=== PATIENT | male | born 1955 | race Two or more races ===

== ENCOUNTER 2020-01-29 13:38 | Inpatient (IN) | payer MEDICAID, OTHER ==
[~2020-01-29] VITALS: Ht 170.2 cm; Wt 96.1 kg
[2020-01-29 15:33] LABS: Urine Bacteria FEW /hpf (None Seen); Urine Blood 3+ /uL (Negative); Urine WBC 565 /hpf (0 - 3)
[2020-01-29 15:43] LABS: Urine Specific Gravity 1.022 (1.001-1.035)
[2020-01-29 16:03] LABS: Hematocrit 38.1 % (41.0-53.0); Hemoglobin 12.7 g/dL (13.5-17.5); Mean Corpuscular Hemoglobin 29.8 pg (28.0-32.0); Mean Corpuscular Hgb Conc. 33.3 g/dL (32.0-36.0); Mean Corpuscular Volume 89.6 fL (80.0-100.0); Platelet Count (auto) 376 10^3/uL (140-450); Red Blood Cells 4.25 10^6/uL (4.5-5.90); Red Cell Distribution Width 13.3 % (11.8-14.3); White Blood Cell 26.9 10^3/uL (4.4-10.8)
[2020-01-29 16:10] LABS: Basophils % (manual) 0 (0.0-2.0); Blast Cells 0; Eosinophils % (manual) 0 (0-7); Metamyelocytes % 0; Myelocytes % 0; Promyelocytes % 0; Reactive Lymphocytes 0
[2020-01-29] MEDS ORDERED: LIDOCAINE 2% JELLY 11ml (GLYDO) ONE (16:14)
[2020-01-29] MEDS ORDERED: cefTRIAXone 1GM/50ML D5W 50 ML IV ONE (16:15)
[2020-01-29 16:20] LABS: Albumin 3.4 g/dL (3.4-5.0); BUN/Creatinine Ratio 11.4; Calcium 8.3 mg/dL (8.5-10.1); Potassium 4.5 mmol/L (3.5-5.1)
[2020-01-29 16:23] LABS: Bilirubin, Total 0.4 mg/dL (0.2-1.0); Total Protein 7.4 g/dL (6.4-8.2)
[2020-01-29] MEDS ORDERED: LIDOCAINE 2% JELLY 11ml (GLYDO) UR ONE (16:45)
[2020-01-29 16:52] LABS: Band Neutrophils % (manual) 3; Lymphocytes % (manual) 11 (10.0-50.0); Monocytes % (manual) 5 (0-12)
[2020-01-29] MEDS ORDERED: ONDANSETRON HCL 4 MG/2 ML VIAL IV ONE (17:00)
[2020-01-29] MEDS ORDERED: MORPHINE SULFATE 4 MG/ML SYR/VIAL IV ONE (17:00)
[2020-01-29] MEDS ORDERED: MORPHINE SULF INJ 2 MG/ML SYRINGE 1ML IV PRN (17:45)
[2020-01-29] MEDS ORDERED: NITROGLYCERIN 0.4 MG SL TAB SL PRN (17:45)
[2020-01-29] MEDS ORDERED: ONDANSETRON HCL 4 MG/2 ML VIAL IV PRN (17:45)
[2020-01-29] MEDS ORDERED: ACETAMINOPHEN 500 MG TAB PO PRN (17:45)
[2020-01-29] MEDS ORDERED: DEXTROSE (50%) 50ML SYRG IV PRN (17:45)
[2020-01-29] MEDS: SODIUM CHLORIDE 0.9% 1,000 ML IV SCH ×2 (17:51→23:09)
[2020-01-29] MEDS: TAMSULOSIN HYDROCHLORIDE 0.4 MG CAP PO SCH (18:21)
[2020-01-29] MEDS: InsuLIN REG 1unit/0.01ml Soln (100units/ml) SC SCH (21:58)
[2020-01-29] MEDS: ACCU-CHEK COMFORT CURVE STRIP VI SCH (22:02)
[2020-01-30] MEDS: MORPHINE SULF INJ 2 MG/ML SYRINGE 1ML IV PRN ×3 (00:06→21:49)
[2020-01-30] MEDS: InsuLIN REG 1unit/0.01ml Soln (100units/ml) SC SCH ×4 (07:00→21:53)
[2020-01-30] MEDS: ACCU-CHEK COMFORT CURVE STRIP VI SCH ×4 (07:00→21:49)
[2020-01-30 07:16] LABS: Basophils # (auto) 0 10 ^3/uL (0-0.2); Basophils % (auto) 0.2 % (0.0-2.0); Eosinophils # (auto) 0.1 10 ^3/uL (0-0.8); Eosinophils % (auto) 0.4 % (0.0-7.0); Hematocrit 36.8 % (41.0-53.0); Lymphocytes # (auto) 1.9 10 ^3/uL (0.4-5.4); Lymphocytes % (auto) 7.4 % (10.0-50.0); Mean Corpuscular Hemoglobin 29.5 pg (28.0-32.0); Mean Corpuscular Hgb Conc. 32.6 g/dL (32.0-36.0); Mean Corpuscular Volume 90.7 fL (80.0-100.0); Monocytes # (auto) 1.4 10 ^3/uL (0-1.3); Monocytes % (auto) 5.5 % (0.0-12.0); Neutrophils # (auto) 22.7 10 ^3/uL (1.6-8.6); Neutrophils % (auto) 86.5 % (37.0-80.0); Platelet Count (auto) 315 10^3/uL (140-450); Red Blood Cells 4.06 10^6/uL (4.5-5.90); Red Cell Distribution Width 13.3 % (11.8-14.3); White Blood Cell 26.2 10^3/uL (4.4-10.8)
[2020-01-30 07:44] LABS: BUN/Creatinine Ratio 9.3; Calcium 7.9 mg/dL (8.5-10.1)
[2020-01-30 08:46] LABS: INR 1.11 (0.9-1.15); Partial Thromboplastin Time 27.9 sec (23.64-32.05)
[2020-01-30] MEDS: cefTRIAXone 1GM/50ML D5W 50 ML IV SCH (09:13)
[2020-01-30] MEDS: SODIUM CHLORIDE 0.9% 1,000 ML IV SCH ×2 (13:56→23:55)
[2020-01-30] MEDS ORDERED: MIDAZOLAM HCL 1MG/1ML-2 ML VIAL ONE (15:01)
[2020-01-30] MEDS ORDERED: fentaNYL CITRATE 100 MCG/2 ML VL ONE (15:01)
[2020-01-30] MEDS ORDERED: MEPERIDINE HCL (50 MG/ML) 1 ML VIAL ONE (15:01)
[2020-01-30] MEDS ORDERED: SUCCINYLCHOLINE CHLORIDE 20 MG/ML 10ML VIAL IV ONE (15:02)
[2020-01-30] MEDS ORDERED: DexAMETHasone SOD PHOS 10MG/1ML VIAL INJ ONE (15:37)
[2020-01-30] MEDS ORDERED: PROPOFOL 10 MG/ML 20 ML IV ONE (15:37)
[2020-01-30] MEDS ORDERED: ONDANSETRON HCL 4 MG/2 ML VIAL IV PRN (15:45)
[2020-01-30] MEDS ORDERED: ePHEDrine SULFATE 50 MG/ML AMP IV PRN (15:45)
[2020-01-30] MEDS ORDERED: LABETALOL HCL 5 MG/ML 4ML SYRINGE IV PRN (15:45)
[2020-01-30] MEDS ORDERED: ACCU-CHEK COMFORT CURVE STRIP VI ONE (15:45)
[2020-01-30] MEDS ORDERED: MIDAZOLAM HCL 1MG/1ML-2 ML VIAL IV PRN (15:45)
[2020-01-30] MEDS ORDERED: HYDROmorphone HCL 2 MG/ML VL IV PRN (15:45)
[2020-01-30] MEDS ORDERED: MORPHINE SULFATE 4 MG/ML SYR/VIAL IV PRN (15:45)
--- NOTE | 2020-01-30 17:11 | NUR ---
Telemetry admit from recovery FELICIA DELANEY admitted to Telemetry unit after SBAR received. Patient oriented to Vicki Dorantes, RN primary RN, unit, room, bed, and unit policies regarding patient care and visiting hours. Patient now on continuous telemetry monitoring, tele box # 29 and telemetry reading on arrival to unit is sinus rhythm. Patient placed on bedside oxygen, weighed by bedscale and encouraged to call if they need something. All questions and concerns addressed, patient verbalized understanding. Noted CBI in place and catheter is hung below bladder draining [place] red fluid with minimal clots present in bag. Bed is set in lowest locked position with side rails up x 2 for safety and call light is within reach. No distress/SOB noted, breaths are even and unlabored, will continue to monitor.
[2020-01-30 17:20] VITALS: BP 148/79
[2020-01-30] MEDS: TAMSULOSIN HYDROCHLORIDE 0.4 MG CAP PO SCH (17:22)
--- NOTE | 2020-01-30 19:25 | NUR ---
Opening Shift Note Received report from Vicki CALERO. Assumed care of patient, awake and alert. No S/S of distress/SOB or pain. Patient s/p Cystoscopy with CBI draining light to dark red output. Instructed on POC and to call for assist PRN, will continue to monitor for changes Q1hr and PRN.
[2020-01-30 22:00] VITALS: BP 134/87
[2020-01-31 05:58] VITALS: BP 123/94
--- NOTE | 2020-01-31 06:00 | NUR ---
Given 24,000ml of CBI fluid, drained 27,075ml of bloody to pink tinged output, 3,075ml is urine output. Patient tolerated well.
[2020-01-31 06:42] LABS: Basophils # (auto) 0.1 10 ^3/uL (0-0.2); Basophils % (auto) 0.2 % (0.0-2.0); Eosinophils # (auto) 0 10 ^3/uL (0-0.8); Hematocrit 36.5 % (41.0-53.0); Hemoglobin 12.2 g/dL (13.5-17.5); Lymphocytes # (auto) 1.5 10 ^3/uL (0.4-5.4); Mean Corpuscular Hemoglobin 29.9 pg (28.0-32.0); Mean Corpuscular Hgb Conc. 33.4 g/dL (32.0-36.0); Mean Corpuscular Volume 89.6 fL (80.0-100.0); Monocytes # (auto) 0.8 10 ^3/uL (0-1.3); Monocytes % (auto) 2.6 % (0.0-12.0); Neutrophils # (auto) 27.7 10 ^3/uL (1.6-8.6); Neutrophils % (auto) 92.2 % (37.0-80.0); Nucleated Red Blood Cells % 0.1 %; Platelet Count (auto) 356 10^3/uL (140-450); Red Blood Cells 4.08 10^6/uL (4.5-5.90); Red Cell Distribution Width 13.3 % (11.8-14.3)
[2020-01-31] MEDS: ACCU-CHEK COMFORT CURVE STRIP VI SCH ×4 (06:51→21:52)
[2020-01-31] MEDS: InsuLIN REG 1unit/0.01ml Soln (100units/ml) SC SCH ×5 (06:52→21:58)
[2020-01-31 07:09] LABS: Potassium 4.3 mmol/L (3.5-5.1)
--- NOTE | 2020-01-31 07:11 | NUR ---
Care endorsed to Anu CALERO.
[2020-01-31 07:16] LABS: Albumin 2.8 g/dL (3.4-5.0); BUN/Creatinine Ratio 13.3; Bilirubin, Total 0.4 mg/dL (0.2-1.0); Calcium 8.1 mg/dL (8.5-10.1); Magnesium 2.7 mg/dL (1.6-2.6); Total Protein 6.8 g/dL (6.4-8.2)
--- NOTE | 2020-01-31 08:00 | NUR ---
Opening Shift Note Assumed care of patient, awake, alert and oriented X4. No S/S of distress/SOB or pain. Tele# 29, sinus rhythm @ 67 bpm. IV to right hand, 20 gauge, patent and infusing 0.9% NS @ 100 ml/hr. Urethral Mcdonnell 3 way catheter draining pink drainage to gravity via CBI, no clots noted. Bilateral SCD's in place, IS at bedside. Instructed on POC and to call for assist PRN, verbalized understanding. Bed locked, in lowest position, call light within reach, will continue to monitor for changes Q1hr and PRN.
[2020-01-31 09:00] VITALS: BP 127/70
[2020-01-31] MEDS: cefTRIAXone 1GM/50ML D5W 50 ML IV SCH (09:00)
[2020-01-31] MEDS: SODIUM CHLORIDE 0.9% 1,000 ML IV SCH ×2 (10:56→21:52)
[2020-01-31] MEDS: PIPERACILLIN-TAZO 4.5GM 100 ML IV ONE ×2 (10:57→11:41)
[2020-01-31] MEDS: PIPERACILLIN-TAZOB 3.375GM 100 ML IV SCH ×2 (11:49→18:14)
--- NOTE | 2020-01-31 11:50 | NUR ---
ROUNDS Dr Lopez at bedside for rounds, new orders received and followed through. Patient updated on plan of care, verbalized understanding, translation provided by ABDIAS Latham.
[2020-01-31 13:00] VITALS: BP 128/69
--- NOTE | 2020-01-31 13:15 | NUR ---
UROLOGY Polly Lima at bedside for Urology follow up, new orders received and followed through. Patient updated on plan of care, verbalized understanding.
--- NOTE | 2020-01-31 14:18 | NUR ---
I faxed higher level of care order/clinical information to [facility], [facility] and [facility].
--- NOTE | 2020-01-31 14:23 | NUR ---
I called [facility] Transfer Center [phone] and spoke with Anahi regarding the need to transfer this patient. I provided her with contact information for Dr. Lopez and the nurse's station. Per Anahi they have no beds available at this time.
--- NOTE | 2020-01-31 15:10 | NUR ---
I received a call from Savanna at [facility] letting me know that they can't accept this patient because he has presumptive medi-malcolm only, and because he does not have a definite cancer diagnosis.
[2020-01-31 17:00] VITALS: BP 130/69
[2020-01-31] MEDS: TAMSULOSIN HYDROCHLORIDE 0.4 MG CAP PO SCH (18:14)
--- NOTE | 2020-01-31 18:30 | NUR ---
CBI Total In 27,000 ml given Total out 26,250 ml out Total urine output 750 ml/12 hrs.
--- NOTE | 2020-01-31 19:24 | NUR ---
Care endorsed to ABDIAS Dangelo, night nurse.
[2020-01-31] MEDS: MORPHINE SULF INJ 2 MG/ML SYRINGE 1ML IV PRN (21:40)
[2020-01-31 22:00] VITALS: BP 103/56
[2020-02-01] MEDS: PIPERACILLIN-TAZOB 3.375GM 100 ML IV SCH ×4 (00:29→17:39)
[2020-02-01] MEDS: MORPHINE SULF INJ 2 MG/ML SYRINGE 1ML IV PRN ×3 (03:39→14:36)
[2020-02-01 05:00] VITALS: BP 121/70
[2020-02-01] MEDS: ACCU-CHEK COMFORT CURVE STRIP VI SCH ×4 (05:40→22:00)
[2020-02-01] MEDS: SODIUM CHLORIDE 0.9% 1,000 ML IV SCH ×2 (05:41→17:38)
[2020-02-01] MEDS: InsuLIN REG 1unit/0.01ml Soln (100units/ml) SC SCH ×4 (05:47→22:00)
[2020-02-01 06:44] LABS: Hematocrit 37.5 % (41.0-53.0); Hemoglobin 12.4 g/dL (13.5-17.5); Mean Corpuscular Hemoglobin 29.8 pg (28.0-32.0); Mean Corpuscular Hgb Conc. 33.1 g/dL (32.0-36.0); Mean Corpuscular Volume 89.9 fL (80.0-100.0); Platelet Count (auto) 392 10^3/uL (140-450); Red Blood Cells 4.17 10^6/uL (4.5-5.90); Red Cell Distribution Width 13.8 % (11.8-14.3); White Blood Cell 27.1 10^3/uL (4.4-10.8)
[2020-02-01 06:58] LABS: Band Neutrophils % (manual) 0; Basophils % (manual) 0 (0.0-2.0); Blast Cells 0; Metamyelocytes % 0; Myelocytes % 0; Promyelocytes % 0; Reactive Lymphocytes 0
[2020-02-01 07:02] LABS: Albumin 2.8 g/dL (3.4-5.0); Calcium 8.3 mg/dL (8.5-10.1); Magnesium 2.7 mg/dL (1.6-2.6); Potassium 4.7 mmol/L (3.5-5.1)
[2020-02-01 07:05] LABS: BUN/Creatinine Ratio 11.8; Bilirubin, Total 0.4 mg/dL (0.2-1.0); Total Protein 6.8 g/dL (6.4-8.2)
[2020-02-01 08:38] LABS: Eosinophils % (manual) 2 (0-7); Lymphocytes % (manual) 22 (10.0-50.0); Monocytes % (manual) 2 (0-12)
[2020-02-01 09:00] VITALS: BP 120/65
--- NOTE | 2020-02-01 09:09 | NUR ---
I called [facility] [phone] and spoke with Shayla, she said no beds available at this time.
--- NOTE | 2020-02-01 11:49 | NUR ---
I called [facility] [place] [phone] and spoke with Nika, she transferred me to the automated transfer request line-I was cut off when trying to provided clinical information. I called [facility] again and was unable to leave a message or speak with a live person-will try again.
[2020-02-01 13:00] VITALS: BP 137/70
--- NOTE | 2020-02-01 16:13 | NUR ---
PT URINE LIGHT YELLOW, NO PINK TRACES, NO BLOOD OR CLOTS NOTED. CBI CLAMPED. 3000 MLS NS USED FOR CBI, APPROX 5100 DRAINED FROM STRATTON THROUGHOUT THE DAY. WILL CONTINUE TO MONITOR.
[2020-02-01 17:00] VITALS: BP 142/78
[2020-02-01] MEDS: TAMSULOSIN HYDROCHLORIDE 0.4 MG CAP PO SCH (17:40)
[2020-02-01 17:54] VITALS: BP 142/78
--- NOTE | 2020-02-01 18:08 | NUR ---
PT REPORTS HE IS VERY UNCOMFORTABLE AND IS UNABLE TO HAVE A BM. HE REPORTS ABDOMINAL PAIN 5/10. CALLED PBX AND PAGED HOSPITALIST FOR MED, AWAITING CALL BACK.
[2020-02-01] MEDS ORDERED: DOCUSATE SOD 100 MG CAP PO ONE (18:45)
[2020-02-01] MEDS ORDERED: LACTULOSE 20Gm/30ML SOLN PO ONE (18:45)
--- NOTE | 2020-02-01 18:45 | NUR ---
DR LEWIS CALLED BACK. NOTIFIED MD OF PT CONSTIPATION, NEW ORDERS FOR LACTULOSE AND COLACE.
[2020-02-01] MEDS: DOCUSATE SOD 100 MG CAP PO SCH (21:24)
[2020-02-01 22:00] VITALS: BP 139/78
[2020-02-02] MEDS ORDERED: LACTULOSE 20Gm/30ML SOLN PO PRN
[2020-02-02] MEDS: PIPERACILLIN-TAZOB 3.375GM 100 ML IV SCH ×2 (01:16→04:59)
[2020-02-02] MEDS: MORPHINE SULF INJ 2 MG/ML SYRINGE 1ML IV PRN (03:56)
[2020-02-02] MEDS: SODIUM CHLORIDE 0.9% 1,000 ML IV SCH ×2 (04:59→12:43)
[2020-02-02 05:00] VITALS: BP 137/79
[2020-02-02] MEDS: ACCU-CHEK COMFORT CURVE STRIP VI SCH ×4 (05:48→21:52)
[2020-02-02] MEDS: InsuLIN REG 1unit/0.01ml Soln (100units/ml) SC SCH ×4 (05:55→22:00)
[2020-02-02 06:13] LABS: Basophils # (auto) 0 10 ^3/uL (0-0.2); Basophils % (auto) 0.2 % (0.0-2.0); Eosinophils # (auto) 0.3 10 ^3/uL (0-0.8); Eosinophils % (auto) 1.3 % (0.0-7.0); Hematocrit 37.9 % (41.0-53.0); Hemoglobin 12.6 g/dL (13.5-17.5); Lymphocytes # (auto) 2.8 10 ^3/uL (0.4-5.4); Lymphocytes % (auto) 11.1 % (10.0-50.0); Mean Corpuscular Hemoglobin 29.9 pg (28.0-32.0); Mean Corpuscular Hgb Conc. 33.3 g/dL (32.0-36.0); Mean Corpuscular Volume 89.7 fL (80.0-100.0); Monocytes # (auto) 1.6 10 ^3/uL (0-1.3); Monocytes % (auto) 6.5 % (0.0-12.0); Neutrophils # (auto) 20.3 10 ^3/uL (1.6-8.6); Neutrophils % (auto) 80.9 % (37.0-80.0); Platelet Count (auto) 375 10^3/uL (140-450); Red Blood Cells 4.22 10^6/uL (4.5-5.90); Red Cell Distribution Width 13.4 % (11.8-14.3); White Blood Cell 25.1 10^3/uL (4.4-10.8)
[2020-02-02 06:39] LABS: Potassium 3.9 mmol/L (3.5-5.1)
[2020-02-02 06:55] LABS: Calcium 8.5 mg/dL (8.5-10.1)
[2020-02-02] MEDS: DOCUSATE SOD 100 MG CAP PO SCH ×2 (08:49→22:02)
[2020-02-02 09:00] VITALS: BP 135/67
[2020-02-02] MEDS: HYDROcodone-ACET 5/325MG TAB PO PRN ×3 (09:32→23:39)
--- NOTE | 2020-02-02 10:08 | NUR ---
I received a call from Anahi at the [facility] Transfer Center letting me know that they have no beds available at this time.
--- NOTE | 2020-02-02 11:09 | NUR ---
DR SCHAEFER CAME TO NURSING STATION. REQUESTS TO CALL PATHOLOGY AND GET REPORT FOR CANCER DIAGNOSIS, TO GET PATIENT INTO [facility]. CALLED PATHOLOGY AND TECH REPORTS PATHOLOGY REPORT'S STILL INCOMPLETE. TECH REPORTS HE WILL ASK DR TO REVIEW IT. DR SCHAEFER NOTIFIED.
[2020-02-02] MEDS ORDERED: MEROPENEM 1GM IVPB 100 ML IV ONE (11:30)
--- NOTE | 2020-02-02 12:11 | NUR ---
Nutrition Assessment Notes Please refer to link for full assessment notes. Est Energy needs: [id number] kcals (17-20 kcal/kgBW) Est Protein needs: 77-96 gms/day (0.8-1.0 gm/kgBW) Will continue to monitor and reassess prn. Addendum: 02/02/20 at [address] Amended: Links added.
[2020-02-02 13:00] VITALS: BP 134/72
[2020-02-02 17:00] VITALS: BP 140/74
[2020-02-02] MEDS: TAMSULOSIN HYDROCHLORIDE 0.4 MG CAP PO SCH (17:42)
--- NOTE | 2020-02-02 17:49 | NUR ---
DR OLIVE JACK MD REPORTS PT WAS ACCEPTED AT [facility] AND DR DANIELS IS THE ACCEPTING DR. DR SCHAEFER REPORTS PT WILL TRANSFER TONIGHT NO ETA AVAILABLE YET. PT NOTIFIED HE WILL GO TO [facility] TONIGHT. PT AGREED.
--- NOTE | 2020-02-02 18:00 | NUR ---
Dr Lopez reports to keep [place] for transfer.
--- NOTE | 2020-02-02 18:44 | NUR ---
SPOKE WITH DR SCHAEFER AT NURSING STATION, REPORTS TO CALL [facility] FOR AN ETA TIME.
--- NOTE | 2020-02-02 18:46 | NUR ---
CALLED [facility], THEY REPORT THE PATIENT HAS BEEN ACCEPTED, THEY ARE JUST WAITING ON A BED ASSIGNMENT, AND WILL CALL BACK SOON THEY HAVE ONE. CALLED DR OLIVE MARI REQUESTED DC ORDER AND UPDATED HIM ON REPORT FROM [facility].
--- NOTE | 2020-02-02 18:58 | NUR ---
PATHOLOGY REPORT COPIED AND PUT IN PATIENT DISCHARGE ENVELOPE PER OLENA SCHAEFER, ORIGINAL KEPT IN CHART. IMAGING DISC PLACED IN DISCHARGE ENVELOPE WELL.
[2020-02-02 20:33] VITALS: BP_SYST 137; BP_SYST 156; BP_DIAS 75; BP_DIAS 79
--- NOTE | 2020-02-02 20:35 | NUR ---
[facility] CALLED STATES THERE IS BED AVAILABLE TO TRANSFER PATIENT [id number], CALL BACK EXPECTED ETA WHEN TRANSPORTATION IS MADE. Addendum: 02/02/20 at 2053 by LASHA TOUSSAINT RN RN CALLED BACK [facility] [phone] REGARDING [facility]
--- NOTE | 2020-02-02 20:50 | NUR ---
[facility] ARRANGED FOR [facility] TRANSPORTATION TO [facility] EXPECTED ETA +2 HOURS OR MORE BUT WILL CALL IF MORE THAN 2 HOURS.
--- NOTE | 2020-02-02 21:13 | NUR ---
TRANSFER REPORT CALLED [facility] SPOKE WITH NURSE PATEL FOR REPORT ON PATIENT. [phone]. [phone]
[2020-02-02 22:00] VITALS: BP 156/75
[2020-02-02] MEDS ORDERED: MEROPENEM 1GM IVPB 100 ML IV SCH (22:00)
--- NOTE | 2020-02-03 01:12 | NUR ---
DISCHARGE [facility] AT BEDSIDE TO TRANSPORT PATIENT TO [facility]. ALL BELONGINGS WITH PATIENT, PATIENT IN NO APPARENT CARDIAC OR PULMONARY DISTRESS AND IN NO PAIN. PATIENT IV ACCESS 22 RFA PATENT AND INTACT. PATIENT HAS STRATTON DRAINING CLEAR YELLOW URINE TO GRAVITY. 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 PATIENT LEFT VIA GURNEY ACCOMPANIED BY [facility] STAFF @ [id number].
[2020-03-19] MEDS ORDERED: PHEN-1044 PO (14:58)
== END 2020-02-03 01:12 | disposition short-term general hospital (02) | DRG 710 ==
LOC: ER 13:38 → TELE 13:39 → TELE-CENTR 01-30 17:14
PROVIDERS: ADMIT Nurse Practitioner Acute Care; ATTEND Internal Medicine
PROC: 0TBB8ZZ Excision of Bladder, Via Natural or Artificial Opening Endoscopic (ICD-10-PCS; principal; 2020-01-29)
DX: A41.9 Sepsis, unspecified organism (principal); N13.6 Pyonephrosis; D64.9 Anemia, unspecified; N13.9 Obstructive and reflux uropathy, unspecified; E66.9 Obesity, unspecified; N40.0 Benign prostatic hyperplasia without lower urinary tract symptoms; R73.03 Prediabetes; R33.9 Retention of urine, unspecified; Z79.899 Other long term (current) drug therapy; Z68.31 Body mass index [BMI] 31.0-31.9, adult; C68.9 Malignant neoplasm of urinary organ, unspecified
CPT/HCPCS: 36415; 51702; 71045; 74176; 76705; 80048; 80053; 81001; 82962; 83036; 83735; 84154; 85007; 85025; 85027; 85610; 85730; 87040; 87086; 93005; 96365; 96375; G0378; J0330; J0696; J1100; J1815; J2185; J2250; J2405; J2543; J2704

== ENCOUNTER 2020-03-14 13:31 | Inpatient (IN) | payer MEDICAID ==
[~2020-03-14] VITALS: Ht 177.8 cm; Wt 99.4 kg
[2020-03-14 04:00] VITALS: BP 148/113
[2020-03-14 14:35] LABS: Hemoglobin 11.3 g/dL (13.5-17.5); Red Cell Distribution Width 13.5 % (11.8-14.3)
[2020-03-14 14:37] LABS: Hematocrit 34.7 % (41.0-53.0); Mean Corpuscular Hemoglobin 28.7 pg (28.0-32.0); Mean Corpuscular Hgb Conc. 32.6 g/dL (32.0-36.0); Mean Corpuscular Volume 88.1 fL (80.0-100.0); Platelet Count (auto) 414 10^3/uL (140-450); Red Blood Cells 3.93 10^6/uL (4.5-5.90)
[2020-03-14 14:50] LABS: Band Neutrophils % (manual) 0; Basophils % (manual) 0 (0.0-2.0); Blast Cells 0; Eosinophils % (manual) 0 (0-7); Metamyelocytes % 0; Myelocytes % 0; Promyelocytes % 0; Reactive Lymphocytes 0
[2020-03-14 14:51] LABS: Urine Bacteria NONE SEEN /hpf (None Seen); Urine Blood 2+ /uL (Negative); Urine Mucus FEW (None Seen); Urine Specific Gravity 1.017 (1.001-1.035); Urine WBC 687 /hpf (0 - 3); Urine WBC Clumps PRESENT /hpf (None Seen)
[2020-03-14 14:54] LABS: Alanine Aminotransferase 27 U/L (16-61); Albumin 2.9 g/dL (3.4-5.0); Anion Gap 9 (5-15); Blood Urea Nitrogen 10 mg/dL (7-18); Calcium 8.9 mg/dL (8.5-10.1); Carbon Dioxide 25 mmol/L (21-32); Chloride 90 mmol/L (98-107); Glucose 122 mg/dL (74-106); Lipase 58 U/L (73-393); Potassium 4.2 mmol/L (3.5-5.1); Sodium 124 mmol/L (136-145)
[2020-03-14 14:59] LABS: Alkaline Phosphatase 180 U/L (45-117); Aspartate Aminotransferase 17 U/L (15-37); BUN/Creatinine Ratio 9.7; Bilirubin, Total 0.8 mg/dL (0.2-1.0); GFR African American 94 mL/min; GFR Non-African American 78 mL/min; Total Protein 7.3 g/dL (6.4-8.2)
[2020-03-14] MEDS ORDERED: cefTRIAXone W LIDOCAINE 1 GM IM IM ONE (15:30)
[2020-03-14 17:10] LABS: Lymphocytes % (manual) 9 (10.0-50.0); Monocytes % (manual) 6 (0-12)
[2020-03-14] MEDS ORDERED: CEFTRIAXONE SODIUM 2 GM in D5W 5% 50 ML IV ONE (21:15)
[2020-03-14] MEDS ORDERED: SODIUM CHLORIDE 0.9% 1,000 ML IV ONE (21:30)
[2020-03-14] MEDS ORDERED: ONDANSETRON HCL 4 MG/2 ML VIAL IV PRN (21:30)
[2020-03-14] MEDS ORDERED: cefTRIAXone SOD 1,000 MG VL ONE (22:13)
[2020-03-14] MEDS: FAMOTIDINE 20 MG TAB PO SCH (22:40)
[2020-03-14] MEDS: TEMAZEPAM 15 MG CAP PO PRN (23:49)
[2020-03-15 00:53] VITALS: BP 140/70
[2020-03-15] MEDS ORDERED: TAM04C PO (01:03)
[2020-03-15 04:54] LABS: Hematocrit 32.8 % (41.0-53.0); Hemoglobin 10.7 g/dL (13.5-17.5); Mean Corpuscular Hemoglobin 28.6 pg (28.0-32.0); Mean Corpuscular Hgb Conc. 32.7 g/dL (32.0-36.0); Mean Corpuscular Volume 87.5 fL (80.0-100.0); Platelet Count (auto) 392 10^3/uL (140-450); Red Blood Cells 3.75 10^6/uL (4.5-5.90); Red Cell Distribution Width 13.7 % (11.8-14.3)
[2020-03-15 05:00] VITALS: BP 143/64
[2020-03-15 05:05] LABS: White Blood Cell 43.3 10^3/uL (4.4-10.8)
[2020-03-15 05:06] LABS: Basophils % (manual) 0 (0.0-2.0); Blast Cells 0; Metamyelocytes % 0; Myelocytes % 0; Promyelocytes % 0; Reactive Lymphocytes 0
[2020-03-15 05:16] LABS: BUN/Creatinine Ratio 10.7; Calcium 8.5 mg/dL (8.5-10.1); Potassium 4.4 mmol/L (3.5-5.1)
[2020-03-15 05:48] LABS: Band Neutrophils % (manual) 9; Eosinophils % (manual) 1 (0-7); Lymphocytes % (manual) 10 (10.0-50.0); Monocytes % (manual) 4 (0-12)
[2020-03-15 09:00] VITALS: BP 131/62
[2020-03-15] MEDS: FAMOTIDINE 20 MG TAB PO SCH ×2 (09:04→22:19)
[2020-03-15] MEDS: PHENAZOPYRIDINE HCL 100 MG TAB PO SCH ×2 (12:51→17:58)
[2020-03-15 14:49] VITALS: BP 125/69
[2020-03-15] MEDS: TAMSULOSIN HYDROCHLORIDE 0.4 MG CAP PO SCH (17:58)
[2020-03-15 22:00] VITALS: BP 128/65
[2020-03-15] MEDS: cefTRIAXone 1GM/50ML D5W 50 ML IV SCH (22:19)
[2020-03-16 06:40] LABS: Red Cell Distribution Width 13.7 % (11.8-14.3)
[2020-03-16 06:44] LABS: Hematocrit 33.7 % (41.0-53.0); Mean Corpuscular Hemoglobin 28.5 pg (28.0-32.0); Mean Corpuscular Hgb Conc. 32.7 g/dL (32.0-36.0); Mean Corpuscular Volume 87.2 fL (80.0-100.0); Platelet Count (auto) 381 10^3/uL (140-450); Red Blood Cells 3.87 10^6/uL (4.5-5.90)
[2020-03-16 06:50] LABS: Calcium 8.5 mg/dL (8.5-10.1); Magnesium 2.4 mg/dL (1.6-2.6); Potassium 4.5 mmol/L (3.5-5.1)
[2020-03-16 06:53] LABS: White Blood Cell 43.6 10^3/uL (4.4-10.8)
[2020-03-16 06:55] LABS: Basophils % (manual) 0 (0.0-2.0); Blast Cells 0; Eosinophils % (manual) 0 (0-7); Metamyelocytes % 0; Myelocytes % 0; Promyelocytes % 0; Reactive Lymphocytes 0
[2020-03-16 07:53] LABS: Band Neutrophils % (manual) 4; Lymphocytes % (manual) 7 (10.0-50.0); Monocytes % (manual) 4 (0-12)
[2020-03-16] MEDS: PHENAZOPYRIDINE HCL 100 MG TAB PO SCH ×3 (08:50→18:25)
[2020-03-16] MEDS: FAMOTIDINE 20 MG TAB PO SCH ×2 (08:50→23:06)
[2020-03-16 09:00] VITALS: BP 124/68
[2020-03-16] MEDS: ACETAMINOPHEN 325 MG TAB PO PRN (09:00)
[2020-03-16 14:00] VITALS: BP 136/72
[2020-03-16] MEDS ORDERED: LIDOCAINE HCL 2% TOP JELLY 5ML TOP ONE (15:15)
[2020-03-16 17:00] VITALS: BP 133/72
[2020-03-16] MEDS ORDERED: SODIUM CHLORIDE 0.9% 1,000 ML IV ONE (18:15)
[2020-03-16] MEDS: TAMSULOSIN HYDROCHLORIDE 0.4 MG CAP PO SCH (18:24)
[2020-03-16 22:00] VITALS: BP 115/67
[2020-03-16] MEDS: cefTRIAXone 1GM/50ML D5W 50 ML IV SCH (23:05)
[2020-03-17] MEDS: ACETAMINOPHEN 325 MG TAB PO PRN ×2 (04:49→12:48)
[2020-03-17 05:00] VITALS: BP 146/75
[2020-03-17] MEDS: PHENAZOPYRIDINE HCL 100 MG TAB PO SCH ×3 (08:30→17:45)
[2020-03-17 08:55] LABS: Mean Corpuscular Volume 87.9 fL (80.0-100.0)
[2020-03-17 09:00] VITALS: BP_SYST 115; BP_SYST 122; BP_DIAS 62; BP_DIAS 73
[2020-03-17 09:00] LABS: Hematocrit 33.3 % (41.0-53.0); Hemoglobin 10.9 g/dL (13.5-17.5); Mean Corpuscular Hemoglobin 28.9 pg (28.0-32.0); Mean Corpuscular Hgb Conc. 32.8 g/dL (32.0-36.0); Platelet Count (auto) 382 10^3/uL (140-450); Red Blood Cells 3.79 10^6/uL (4.5-5.90); Red Cell Distribution Width 13.8 % (11.8-14.3)
[2020-03-17 09:07] LABS: White Blood Cell 46.1 10^3/uL (4.4-10.8)
[2020-03-17 09:10] LABS: Basophils % (manual) 0 (0.0-2.0); Blast Cells 0; Eosinophils % (manual) 0 (0-7); Metamyelocytes % 0; Myelocytes % 0; Promyelocytes % 0; Reactive Lymphocytes 0
[2020-03-17 09:15] LABS: Albumin 2.6 g/dL (3.4-5.0); Calcium 8.5 mg/dL (8.5-10.1)
[2020-03-17 09:34] LABS: BUN/Creatinine Ratio 10.5; Bilirubin, Total 0.5 mg/dL (0.2-1.0); Potassium 4.2 mmol/L (3.5-5.1); Total Protein 6.7 g/dL (6.4-8.2)
[2020-03-17] MEDS: FAMOTIDINE 20 MG TAB PO SCH ×2 (10:22→21:48)
[2020-03-17 11:29] LABS: Band Neutrophils % (manual) 2; Lymphocytes % (manual) 6 (10.0-50.0); Monocytes % (manual) 3 (0-12)
[2020-03-17 17:00] VITALS: BP 124/68
[2020-03-17] MEDS: TAMSULOSIN HYDROCHLORIDE 0.4 MG CAP PO SCH (17:45)
[2020-03-17] MEDS: Ensure HIGH Protein Chocolate 8oz Bottle PO SCH (17:45)
[2020-03-17 21:00] VITALS: BP 146/74
[2020-03-17] MEDS: cefTRIAXone 1GM/50ML D5W 50 ML IV SCH (21:48)
[2020-03-18] MEDS: ACETAMINOPHEN 325 MG TAB PO PRN (03:27)
[2020-03-18] MEDS: TEMAZEPAM 15 MG CAP PO PRN (03:45)
[2020-03-18 04:28] VITALS: BP 114/68
[2020-03-18 06:34] LABS: Platelet Count (auto) 378 10^3/uL (140-450)
[2020-03-18 06:39] LABS: Hematocrit 33.2 % (41.0-53.0); Hemoglobin 10.9 g/dL (13.5-17.5); Mean Corpuscular Hgb Conc. 32.8 g/dL (32.0-36.0); Mean Corpuscular Volume 88.3 fL (80.0-100.0); Red Blood Cells 3.76 10^6/uL (4.5-5.90); Red Cell Distribution Width 13.9 % (11.8-14.3)
[2020-03-18 06:51] LABS: Calcium 8.6 mg/dL (8.5-10.1); Potassium 3.9 mmol/L (3.5-5.1)
[2020-03-18 07:06] LABS: Basophils % (manual) 0 (0.0-2.0); Blast Cells 0; Eosinophils % (manual) 0 (0-7); Metamyelocytes % 0; Myelocytes % 0; Promyelocytes % 0; Reactive Lymphocytes 0
[2020-03-18 07:41] LABS: Band Neutrophils % (manual) 1; Lymphocytes % (manual) 7 (10.0-50.0); Monocytes % (manual) 1 (0-12)
[2020-03-18 08:59] VITALS: BP 122/65
[2020-03-18] MEDS: Ensure HIGH Protein Chocolate 8oz Bottle PO SCH ×3 (09:06→17:55)
[2020-03-18] MEDS: PHENAZOPYRIDINE HCL 100 MG TAB PO SCH (09:06)
[2020-03-18] MEDS: MORPHINE SULFATE 4 MG/ML SYR/VIAL IV PRN ×2 (09:47→20:08)
[2020-03-18] MEDS ORDERED: BELLADONNA ALKAL/OPIUM (16.2/30MG) RECT SUPP PR SCH (10:26)
[2020-03-18] MEDS: FAMOTIDINE 20 MG TAB PO SCH ×2 (10:51→21:43)
[2020-03-18 16:59] VITALS: BP 134/85
[2020-03-18] MEDS: TAMSULOSIN HYDROCHLORIDE 0.4 MG CAP PO SCH (17:55)
[2020-03-18 21:30] VITALS: BP 124/70
[2020-03-18] MEDS: cefTRIAXone 1GM/50ML D5W 50 ML IV SCH (21:43)
[2020-03-19 05:00] VITALS: BP 123/70
[2020-03-19 05:34] LABS: Hemoglobin 10.9 g/dL (13.5-17.5)
[2020-03-19 05:39] LABS: Mean Corpuscular Hemoglobin 28.9 pg (28.0-32.0); Mean Corpuscular Volume 87.4 fL (80.0-100.0); Platelet Count (auto) 390 10^3/uL (140-450); Red Blood Cells 3.78 10^6/uL (4.5-5.90); Red Cell Distribution Width 13.8 % (11.8-14.3)
[2020-03-19 05:52] LABS: Calcium 8.5 mg/dL (8.5-10.1); Potassium 3.9 mmol/L (3.5-5.1)
[2020-03-19 05:55] LABS: BUN/Creatinine Ratio 15.7
[2020-03-19 06:20] LABS: Basophils % (manual) 0 (0.0-2.0); Blast Cells 0; Eosinophils % (manual) 0 (0-7); Metamyelocytes % 0; Myelocytes % 0; Promyelocytes % 0; Reactive Lymphocytes 0; White Blood Cell 46.6 10^3/uL (4.4-10.8)
[2020-03-19 07:30] LABS: Band Neutrophils % (manual) 3; Lymphocytes % (manual) 4 (10.0-50.0); Monocytes % (manual) 6 (0-12)
[2020-03-19] MEDS: Ensure HIGH Protein Chocolate 8oz Bottle PO SCH ×3 (08:00→18:00)
[2020-03-19 09:22] VITALS: BP 121/68
[2020-03-19] MEDS ORDERED: BELLADONNA ALKAL/OPIUM (16.2/30MG) RECT SUPP PR SCH ×2 (10:00→21:00)
[2020-03-19] MEDS: FAMOTIDINE 20 MG TAB PO SCH ×2 (10:38→22:10)
[2020-03-19] MEDS: MORPHINE SULFATE 4 MG/ML SYR/VIAL IV PRN (10:39)
[2020-03-19 13:02] VITALS: BP 125/65
[2020-03-19] MEDS ORDERED: PHEN-1044 PO (14:58)
[2020-03-19 16:44] VITALS: BP 125/65
[2020-03-19 16:49] VITALS: BP 131/73
[2020-03-19] MEDS: TAMSULOSIN HYDROCHLORIDE 0.4 MG CAP PO SCH (18:00)
[2020-03-19 22:00] VITALS: BP 110/71
[2020-03-19] MEDS ORDERED: DOCUSATE SOD 100 MG CAP PO SCH (22:00)
[2020-03-20 04:53] VITALS: BP 96/53
[2020-03-20 09:00] VITALS: BP 118/69
== END 2020-03-20 11:50 | disposition home or self-care (01) | DRG 461 ==
LOC: ER 13:31 → OVERFLOW 13:32 → WEST WING 23:11
PROVIDERS: ADMIT Nurse Practitioner; ATTEND Internal Medicine
DX: C67.9 Malignant neoplasm of bladder, unspecified (principal); E87.1 Hypo-osmolality and hyponatremia; E44.0 Moderate protein-calorie malnutrition; D63.8 Anemia in other chronic diseases classified elsewhere; D72.823 Leukemoid reaction; E66.9 Obesity, unspecified; N40.0 Benign prostatic hyperplasia without lower urinary tract symptoms; R73.03 Prediabetes; Z20.828 Contact with and (suspected) exposure to other viral communicable diseases; Z82.3 Family history of stroke; Z82.49 Family history of ischemic heart disease and other diseases of the circulatory system; Z85.51 Personal history of malignant neoplasm of bladder; Z79.899 Other long term (current) drug therapy; Z68.29 Body mass index [BMI] 29.0-29.9, adult
CPT/HCPCS: 36415; 74176; 80048; 80053; 81001; 83605; 83690; 83735; 83930; 84154; 84484; 84550; 85007; 85027; 86141; 87040; 87086; 93005; G0378; J0696; J2405; J7060